=== PATIENT | male | born 1950 | race Caucasian/White ===

== ENCOUNTER 2017-06-19 23:34 | Emergency (ER) | payer OTHER, BC ==
[~2017-06-19] VITALS: Ht 185.4 cm; Wt 77.8 kg
[~2017-06-19 23:34] MED LIST: DIGOXIN250 MCG PO; DILTIAZEM 24HR180 MG PO; ELIQUIS5 MG PO; PANTOPRAZOLE SO40 MG PO; SOTALOL80 MG PO
[2017-06-20 00:15] LABS: EOSINOPHIL (%) 4.3 % (0-5); EOSINOPHIL COUNT 0.4 K/uL (0-0.3); HEMATOCRIT 43.7 % (38.0-50.0); IMMATURE GRANULOCYTE (%) 0.2 % (0.0-0.7); INSTRUMENT ABS NEUTROPHIL CT 4.3 K/uL; LYMPHOCYTE COUNT 2.9 K/uL (1.0-2.8); MCH 30.1 PG (29.0-34.0); MCHC 33.2 G/DL (30.0-36.0); MCV 90.7 FL (86-99); MEAN PLAT.VOLUME 8.7 uM^3 (9.0-12.4); MONOCYTE (%) 11.3 % (3-12); NEUTROPHIL (%) 50.4 % (45-76); NEUTROPHIL COUNT 4.3 K/uL (1.8-6.4); PLATELET COUNT 213 K/uL (156-360); RBC DIS.WIDTH-CV 12.6 % (11.8-14.6); RBC DIS.WIDTH-SD 41.6 % (39-53); RED BLOOD COUNT 4.82 M/uL (4.00-5.50); WHITE BLOOD COUNT 8.6 K/uL (4.1-10.2)
[2017-06-20 00:28] LABS: CHLORIDE 105 mEq/L (99-109); POTASSIUM 4.3 mEq/L (3.7-5.4); SODIUM 138 mEq/L (136-147)
[2017-06-20 00:29] LABS: MAGNESIUM 2.4 mg/dL (1.3-2.7)
[2017-06-20 00:30] LABS: GLUCOSE 91 mg/dL (70-99)
[2017-06-20 00:32] LABS: ANION GAP 6 MEQ/L (2-14)
[2017-06-20 00:34] LABS: GFR ESTIMATE (CALCULATED) > 59 mL/min/
[2017-06-20 00:35] LABS: UREA NITROGEN (BUN) 24 mg/dL (9-23)
[2017-06-20 00:42] LABS: TROP-I INTERPRETATION NEGATIVE; TROPONIN-I < 0.01 ng/mL (0.0-0.30)
[2017-06-20 02:09] VITALS: BP 12/75
== END 2017-06-20 02:09 | disposition home or self-care (01) ==
LOC: EME 23:34
PROVIDERS: Emergency Medicine
DX: I48.91 Unspecified atrial fibrillation (principal); I10 Essential (primary) hypertension; Z79.01 Long term (current) use of anticoagulants
CPT/HCPCS: 71010; 80048; 83735; 83880; 84443; 84484; 85025; 93005; J7030

== ENCOUNTER 2017-10-01 14:35 | Emergency (ER) | payer OTHER, BC ==
[~2017-10-01] VITALS: Ht 185.4 cm; Wt 76.6 kg
[2017-10-01 15:03] LABS: HEMATOCRIT 45.8 % (38.0-50.0); MCH 30.6 PG (29.0-34.0); MCHC 33.4 G/DL (30.0-36.0); MCV 91.6 FL (86-99); MEAN PLAT.VOLUME 8.8 uM^3 (9.0-12.4); PLATELET COUNT 212 K/uL (156-360); RBC DIS.WIDTH-SD 43.1 % (39-53); WHITE BLOOD COUNT 7.3 K/uL (4.1-10.2)
[2017-10-01 15:11] LABS: CHLORIDE 103 mEq/L (99-109); POTASSIUM 4.2 mEq/L (3.7-5.4); SODIUM 141 mEq/L (136-147)
[2017-10-01 15:13] LABS: GLUCOSE 94 mg/dL (70-99)
[2017-10-01 15:14] LABS: ANION GAP 12 MEQ/L (2-14)
[2017-10-01 15:16] LABS: GFR ESTIMATE (CALCULATED) > 59 mL/min/
[2017-10-01 15:17] LABS: UREA NITROGEN (BUN) 14 mg/dL (9-23)
[2017-10-01 15:25] LABS: TROP-I INTERPRETATION NEGATIVE; TROPONIN-I < 0.01 ng/mL (0.0-0.30)
[2017-10-01 17:28] VITALS: BP 105/70
== END 2017-10-01 17:37 | disposition home or self-care (01) ==
LOC: EME 14:35
DX: I48.91 Unspecified atrial fibrillation (principal); E78.5 Hyperlipidemia, unspecified; I10 Essential (primary) hypertension; K21.9 Gastro-esophageal reflux disease without esophagitis; Z79.01 Long term (current) use of anticoagulants; Z87.442 Personal history of urinary calculi; Z85.9 Personal history of malignant neoplasm, unspecified
CPT/HCPCS: 71010; 80048; 84484; 85027; 93005; 99281; 99285; J7030

== ENCOUNTER 2017-10-08 23:49 | Observation (INO) | payer OTHER, BC ==
[~2017-10-08] VITALS: Ht 185.4 cm; Wt 76.0 kg
[2017-10-09] VITALS (8 sets, daily range): BP systolic 105–166; BP diastolic 54–103
[2017-10-09 00:27] LABS: HEMATOCRIT 46.7 % (38.0-50.0); MCH 30.8 PG (29.0-34.0); MCHC 33.6 G/DL (30.0-36.0); MCV 91.6 FL (86-99); MEAN PLAT.VOLUME 8.6 uM^3 (9.0-12.4); PLATELET COUNT 212 K/uL (156-360); RBC DIS.WIDTH-SD 43.7 % (39-53); WHITE BLOOD COUNT 8.3 K/uL (4.1-10.2)
[2017-10-09 00:35] LABS: CHLORIDE 102 mEq/L (99-109); POTASSIUM 4.3 mEq/L (3.7-5.4); SODIUM 139 mEq/L (136-147)
[2017-10-09 00:37] LABS: GLUCOSE 92 mg/dL (70-99)
[2017-10-09 00:39] LABS: ANION GAP 8 MEQ/L (2-14)
[2017-10-09 00:41] LABS: GFR ESTIMATE (CALCULATED) > 59 mL/min/ (58.99-99999)
[2017-10-09 00:42] LABS: UREA NITROGEN (BUN) 16 mg/dL (9-23)
[2017-10-09 00:48] LABS: TROP-I INTERPRETATION NEGATIVE; TROPONIN-I < 0.01 ng/mL (0.0-0.30)
[2017-10-09 06:16] LABS: MAGNESIUM 2.3 mg/dL (1.3-2.7)
[2017-10-09 07:06] LABS: HDL CHOLESTEROL 53 MG/DL (Desirable>=40); LDL CHOLESTEROL 111 mg/dL (Desirable<100); NON-HDL CHOLESTEROL 145 mg/dL (Desirable<160); SAMPLE HEMOLYSIS CHECK 0; SAMPLE ICTERIC CHECK 0; SAMPLE LIPEMIA CHECK 1; TOTAL CHOLESTEROL 198 mg/dL (Desirable<200); TRIGLYCERIDES 170 MG/DL (Normal: <150)
[2017-10-09] MEDS ORDERED: CARDIZEM120 MG PO (14:38)
[2017-10-09] MEDS ORDERED: KETOCONAZOLE120 ML TP (14:39)
[2017-10-09] MEDS ORDERED: FLECAINIDE ACET50 MG PO (14:41)
[2017-10-10 05:00] VITALS: BP 98/57
[2017-10-10 05:29] LABS: HEMATOCRIT 40.8 % (38.0-50.0); MCH 30.5 PG (29.0-34.0); MCHC 33.1 G/DL (30.0-36.0); MCV 92.3 FL (86-99); PLATELET COUNT 196 K/uL (156-360); RBC DIS.WIDTH-CV 13.2 % (11.8-14.6); RBC DIS.WIDTH-SD 44.6 % (39-53); RED BLOOD COUNT 4.42 M/uL (4.00-5.50); WHITE BLOOD COUNT 8.3 K/uL (4.1-10.2)
[2017-10-10 05:55] LABS: ALKALINE PHOSPHATASE 36 IU/L (3-129); ANION GAP 6 MEQ/L (2-14); CHLORIDE 105 MEQ/L (99-109); GFR ESTIMATE (CALCULATED) > 59 mL/min/ (58.99-99999); GLUCOSE 86 mg/dL (70-99); POTASSIUM 4.2 MEQ/L (3.7-5.4); SAMPLE HEMOLYSIS CHECK 0; SAMPLE ICTERIC CHECK 0; SAMPLE LIPEMIA CHECK 0; SODIUM 141 MEQ/L (136-147); TOTAL BILIRUBIN 0.5 MG/DL (0.0-1.0); UREA NITROGEN (BUN) 19 mg/dL (9-23)
[2017-10-10 08:30] VITALS: BP 111/60
[2017-10-10 11:32] VITALS: BP 103/61
[2017-10-10 15:53] VITALS: BP 119/73
[2017-10-10 19:22] VITALS: BP 119/72
[2017-10-10 23:30] VITALS: BP 98/58
[2017-10-11 05:00] VITALS: BP 90/55
[2017-10-11 08:30] VITALS: BP 107/64
[2017-10-11] MEDS ORDERED: TAMBOCOR50 MG PO (11:28)
[2017-10-11] MEDS ORDERED: DILTIAZEM 24HR120 MG PO (11:28)
== END 2017-10-11 15:00 | disposition home or self-care (01) ==
LOC: EME 23:49 → EDOF 10-09 04:22 → 4EAST 10-09 04:22 → EDOF 10-09 04:22 → 5WEST 10-09 04:22 → ENRESERV 10-09 04:23 → 5WEST 10-09 06:04 → ENRESERV 10-09 21:31 → 5WEST 10-09 21:41 → 4EAST 10-09 22:23 → ENPENDDIS 10-11 → 4EAST 10-11 15:00
PROVIDERS: Hospitalist
DX: R55 Syncope and collapse (principal); I48.0 Paroxysmal atrial fibrillation; I10 Essential (primary) hypertension; K21.9 Gastro-esophageal reflux disease without esophagitis; E78.5 Hyperlipidemia, unspecified; Z79.01 Long term (current) use of anticoagulants; Z98.890 Other specified postprocedural states; Z87.442 Personal history of urinary calculi
CPT/HCPCS: 71020; 80048; 80053; 80061; 83735; 84443; 84484; 85027; 93005; G0378; J1160; J7030; J7050; J7120